=== PATIENT | female | born 1975 | race African-American/Black ===

== ENCOUNTER 2016-12-13 10:09 | Emergency (ER) | payer BC ==
[~2016-12-13] VITALS: Ht 167.6 cm; Wt 73.0 kg
[2016-12-13] MEDS ORDERED: METHYLPREDNISOLONE SOD SUCC 125 MG/2 ML VIAL IV STA (11:51)
[2016-12-13] MEDS ORDERED: KETOROLAC 30MG/ML VIAL IV STA (11:51)
[2016-12-13] MEDS ORDERED: CEFTRIAXONE 1 G PREMIX 50 ML IV ONE (12:00)
[2016-12-13 15:17] VITALS: BP 116/75
== END 2016-12-13 16:16 | disposition home or self-care (01) ==
LOC: ER 10:09
DX: J03.90 Acute tonsillitis, unspecified (principal); J02.9 Acute pharyngitis, unspecified
CPT/HCPCS: 70490; 81025; 96365; 96375; 99284; J0696; J1885; J2930; Z7610

== ENCOUNTER 2017-07-24 16:24 | Emergency (ER) | payer BC ==
[~2017-07-24] VITALS: Ht 167.6 cm; Wt 61.0 kg
[2017-07-24 16:52] VITALS: BP 137/86
== END 2017-07-25 00:36 | disposition left against medical advice (07) ==
LOC: ER 17:32
DX: S69.81XA Other specified injuries of right wrist, hand and finger(s), initial encounter (principal); Y08.89XA Assault by other specified means, initial encounter; Y93.89 Activity, other specified; Y92.89 Other specified places as the place of occurrence of the external cause; Y99.8 Other external cause status
CPT/HCPCS: 99281

== ENCOUNTER 2017-07-25 06:58 | Emergency (ER) | payer BC ==
[~2017-07-25] VITALS: Ht 167.6 cm; Wt 62.0 kg
[2017-07-25 07:30] VITALS: BP 122/74
== END 2017-07-25 09:00 | disposition home or self-care (01) ==
LOC: ER 06:58
DX: S69.92XA Unspecified injury of left wrist, hand and finger(s), initial encounter (principal); F17.200 Nicotine dependence, unspecified, uncomplicated; Y08.89XA Assault by other specified means, initial encounter; Y93.89 Activity, other specified; Y92.89 Other specified places as the place of occurrence of the external cause; Y99.8 Other external cause status
CPT/HCPCS: 99281

== ENCOUNTER 2018-02-06 07:17 | Emergency (ER) | payer BC ==
[~2018-02-06] VITALS: Ht 167.6 cm; Wt 64.0 kg
[2018-02-06] MEDS ORDERED: SODIUM CHLORIDE 0.9% 1,000 ML IV ONE (10:45)
[2018-02-06] MEDS ORDERED: KETOROLAC 30MG/ML VIAL IV ONE (10:45)
[2018-02-06 11:36] LABS: EOSINOPHILS % 0.1 % (0.0-5.0); HEMATOCRIT. 40.8 % (36.0-48.0); HEMOGLOBIN. 13.8 g/dL (12.0-16.0); LYMPHOCYTES % 22.3 % (20.0-50.0); MEAN CORPUSCULAR HEMOGLOBIN 31.8 pg (28.0-32.0); MEAN PLATELET VOLUME 10.3 fl (7.4-10.4); MONOCYTES % 8.1 % (2.0-8.0); NEUTROPHILS % 68.5 % (40.0-76.0); PLATELET 167 x1000/uL (130-400); RED BLOOD CELL COUNT 4.35 mill/uL (4.2-5.4); RED CELL DISTRIBUTION WIDTH 13.4 % (11.6-14.6)
[2018-02-06 11:44] LABS: CHLORIDE 103 mEq/L (98-107)
[2018-02-06 12:04] LABS: HCG SCREEN NEGATIVE
[2018-02-06 12:20] LABS: CLARITY URINE CLEAR (CLEAR); COLOR URINE YELLOW (YELLOW); KETONES URINE 1+ (NEGATIVE); LEUKOCYTE ESTERASE URINE NEGATIVE (NEGATIVE); NITRITE URINE NEGATIVE (NEGATIVE); OCCULT BLOOD URINE 1+ (NEGATIVE); PH URINE 5.5 (4.5-8.0); PROTEIN URINE NEGATIVE (NEGATIVE); SPECIFIC GRAVITY URINE 1.023 (1.005-1.030); UROBILINOGEN URINE 0.2 E.U./dL (0.2-1.0)
[2018-02-06 14:10] VITALS: BP 113/69
== END 2018-02-06 14:40 | disposition home or self-care (01) ==
LOC: ER 09:14
DX: J02.9 Acute pharyngitis, unspecified (principal); N39.0 Urinary tract infection, site not specified; H92.02 Otalgia, left ear; R03.0 Elevated blood-pressure reading, without diagnosis of hypertension; F17.210 Nicotine dependence, cigarettes, uncomplicated
CPT/HCPCS: 36415; 80053; 81003; 81025; 83605; 83690; 84703; 85025; 85610; 87040; 87070; 87086; 87430; 87804; 93005; 96374; 99284; J1885; J7030